=== PATIENT | female | born 1945 | race Caucasian/White ===

== ENCOUNTER 2021-07-30 17:50 | Emergency (ER) | payer MEDICARE, OTHER ==
[~2021-07-30] VITALS: Ht 167.6 cm; Wt 72.6 kg
[~2021-07-30 17:50] MED LIST: ASPIRIN81 MG PO; MULTIVITAMINS1 EAC7 PO; NEXIUM40 MG PO; SYMBICORT 16010.2 GM PO; XOPENEX HFA15 GM INH
[2021-07-30] MEDS ORDERED: CASIRIVIMAB/IMDEVIMAB 10 ML in SODIUM CHLORIDE 0.9% 100 ML IV ONE (18:15)
== END 2021-07-30 18:57 | disposition home or self-care (01) ==
LOC: ER 18:10
DX: U07.1 COVID-19 (principal); M32.9 Systemic lupus erythematosus, unspecified; J45.909 Unspecified asthma, uncomplicated; Z85.3 Personal history of malignant neoplasm of breast
CPT/HCPCS: 99283

== ENCOUNTER 2022-04-12 13:46 | Emergency (ER) | payer MEDICARE ==
[~2022-04-12] VITALS: Ht 167.6 cm; Wt 72.6 kg
[2022-04-12] MEDS ORDERED: BEBTELOVIMAB 175 MG INJ IV ONE (14:00)
== END 2022-04-12 14:32 | disposition home or self-care (01) ==
LOC: ER 14:00
DX: U07.1 COVID-19 (principal); R05.9 Cough, unspecified; M32.9 Systemic lupus erythematosus, unspecified; J45.909 Unspecified asthma, uncomplicated; Z85.3 Personal history of malignant neoplasm of breast
CPT/HCPCS: 99283

== ENCOUNTER → 2022-06-09 | Day surgery (SDC) | payer MEDICARE ==
[2022-06-06 14:57] LABS: BASOPHILS # (AUTO) 0.1 (0.0-0.1); BASOPHILS % 0.7 % (0.0-1.0); EOSINOPHILS # (AUTO) 1.1 (0.0-0.4); EOSINOPHILS % 11.5 % (0.0-6.0); HEMATOCRIT 43.9 % (34.2-44.1); HEMOGLOBIN 14.6 g/dL (12.0-16.0); LYMPHOCYTES # (AUTO) 2.4 (1.0-3.2); LYMPHOCYTES % 26.2 % (18.0-39.1); MEAN CORPUSCULAR HEMOGLOBIN 30.1 pg (28-32); MEAN CORPUSCULAR HGB CONC 33.3 g/dL (31-35); MEAN CORPUSCULAR VOLUME 90.5 fL (81-99); MONOCYTES # (AUTO) 0.9 (0.2-0.8); MONOCYTES % 9.3 % (4.4-11.3); NEUTROPHILS # (AUTO) 4.7 (2.1-6.9); PLATELET COUNT 179 x10e3/uL (140-360); RED BLOOD COUNT 4.85 x10e6/uL (3.6-5.1)
[~2022-06-09] MED LIST changes: +CALTRATE 600 W1 EACH PO; +EPHEDRINE SULFATE INJ 50 MG/ML VIAL ONE; +FENTANYL CITRATE/PF 100MCG/2 ML INJ ONE; +FISH OIL 1,2001 EACH PO; +HYOSCYAMINE SULFATE 0.5 MG/ML INJ ONE; +LIDOCAINE HCL 2% LOCAL INJ 5 ML SDV VIAL INJ ONE; +PROPOFOL IV EMULSION 10 MG/ML 20 ML VIAL ONE; +VITAMIN D350 MCG PO
[2022-06-09 10:55] VITALS: BP 143/61
== END | disposition home or self-care (01) ==
LOC: OR 06:54
PROVIDERS: ATTEND Internal Medicine Gastroenterology
DX: R10.32 Left lower quadrant pain (principal); D12.0 Benign neoplasm of cecum; D12.3 Benign neoplasm of transverse colon; D12.4 Benign neoplasm of descending colon; K31.7 Polyp of stomach and duodenum; K29.70 Gastritis, unspecified, without bleeding; K21.00 Gastro-esophageal reflux disease with esophagitis, without bleeding; K22.70 Barrett's esophagus without dysplasia; K44.9 Diaphragmatic hernia without obstruction or gangrene; K64.8 Other hemorrhoids; J45.909 Unspecified asthma, uncomplicated; N20.0 Calculus of kidney; Z01.810 Encounter for preprocedural cardiovascular examination; Z01.812 Encounter for preprocedural laboratory examination; Z79.82 Long term (current) use of aspirin; Z79.899 Other long term (current) drug therapy; Z85.3 Personal history of malignant neoplasm of breast
CPT/HCPCS: 36415; 43239; 43251; 45380; 45385; 85025; 93005; C9113; J1980; J2001; J2704; J3010; 45378

== ENCOUNTER → 2022-11-27 | Outpatient (CLI) | payer MEDICARE ==
[~2022-11-27] MED LIST changes: -EPHEDRINE SULFATE INJ 50 MG/ML VIAL ONE; -FENTANYL CITRATE/PF 100MCG/2 ML INJ ONE; -HYOSCYAMINE SULFATE 0.5 MG/ML INJ ONE; -LIDOCAINE HCL 2% LOCAL INJ 5 ML SDV VIAL INJ ONE; -PROPOFOL IV EMULSION 10 MG/ML 20 ML VIAL ONE
== END ==
LOC: RAD 08:56
PROVIDERS: ATTEND Internal Medicine Gastroenterology
DX: K59.09 Other constipation (principal)
CPT/HCPCS: 74018

== ENCOUNTER → 2024-02-29 | Day surgery (SDC) | payer MEDICARE ==
[2024-02-26 15:10] LABS: BASOPHILS # (AUTO) 0.1 (0.0-0.1); BASOPHILS % 0.5 % (0.0-1.0); EOSINOPHILS % 10.6 % (0.0-6.0); HEMATOCRIT 43.7 % (34.2-44.1); HEMOGLOBIN 14.6 g/dL (12.0-16.0); LYMPHOCYTES # (AUTO) 2.5 (1.0-3.2); LYMPHOCYTES % 26.1 % (18.0-39.1); MEAN CORPUSCULAR HEMOGLOBIN 30.5 pg (28-32); MEAN CORPUSCULAR HGB CONC 33.4 g/dL (31-35); MEAN CORPUSCULAR VOLUME 91.2 fL (81-99); MONOCYTES % 10.3 % (4.4-11.3); NEUTROPHILS % 52.1 % (38.7-80.0); PLATELET COUNT 196 x10e3/uL (140-360); RED BLOOD COUNT 4.79 x10e6/uL (3.6-5.1); RED CELL DISTRIBUTION WIDTH 12.9 % (11.7-14.4); WHITE BLOOD COUNT 9.65 x10e3/uL (4.8-10.8)
[~2024-02-29] MED LIST changes: +ACETAMINOPHEN 1000 MG/100 ML IV ONE; +ATIVAN1 MG PO; +BIOTIN1 MG; +BUPIVACAINE HCL 0.5% INJ 30 ML VIAL INJ ONE; +DEXAMETHASONE SOD PHOS INJ 4 MG/ML SDV ONE; +EPHEDRINE SULFATE INJ 50 MG/ML VIAL ONE; +FENTANYL CITRATE/PF 100MCG/2 ML INJ ONE; +HYDROCODONE/APAP 5MG-325MG TAB ONE; +LACTATED RINGER'S 1,000 ML ONE; +LIDOCAINE HCL 2% LOCAL INJ 5 ML SDV VIAL INJ ONE; +NEOSTIGMINE 1 MG/ML 10ML VIAL ONE; +ONDANSETRON HCL INJ 2MG/ML 2ML 2 MG/ML VIAL ONE; +PROPOFOL IV EMULSION 10 MG/ML 20 ML VIAL ONE; +PROVENTIL HFA6.7 GM INH; +SEVOFLURANE INHAL SOLN 250 ML PEN BTL ONE
[2024-02-29] MEDS: HYDROCODONE/APAP 5MG-325MG TAB PO ONE (10:18)
[2024-02-29 11:00] VITALS: BP 150/82; PULSE 70; RESP 16; O2SAT 97
== END | disposition home or self-care (01) ==
LOC: OR 06:06
PROVIDERS: ATTEND Podiatrist Foot Surgery
DX: M20.11 Hallux valgus (acquired), right foot (principal); M20.41 Other hammer toe(s) (acquired), right foot; J45.909 Unspecified asthma, uncomplicated; K21.9 Gastro-esophageal reflux disease without esophagitis; F41.9 Anxiety disorder, unspecified; Z91.040 Latex allergy status; Z91.048 Other nonmedicinal substance allergy status; Z01.810 Encounter for preprocedural cardiovascular examination; Z01.812 Encounter for preprocedural laboratory examination; Z01.818 Encounter for other preprocedural examination; Z79.899 Other long term (current) drug therapy
CPT/HCPCS: 28285 ×3; 28296; 36415; 71046; 76000; 85025; 93005; C1713 ×5; J0131; J0690; J1100; J2001; J2405; J2704; J2710; J3010; J7121

== ENCOUNTER → 2025-06-25 | Outpatient (REF) | payer MEDICARE ==
[~2025-06-25] MED LIST changes: -ACETAMINOPHEN 1000 MG/100 ML IV ONE; -BUPIVACAINE HCL 0.5% INJ 30 ML VIAL INJ ONE; -DEXAMETHASONE SOD PHOS INJ 4 MG/ML SDV ONE; -EPHEDRINE SULFATE INJ 50 MG/ML VIAL ONE; -FENTANYL CITRATE/PF 100MCG/2 ML INJ ONE; -HYDROCODONE/APAP 5MG-325MG TAB ONE; -LACTATED RINGER'S 1,000 ML ONE; -LIDOCAINE HCL 2% LOCAL INJ 5 ML SDV VIAL INJ ONE; -NEOSTIGMINE 1 MG/ML 10ML VIAL ONE; -ONDANSETRON HCL INJ 2MG/ML 2ML 2 MG/ML VIAL ONE; -PROPOFOL IV EMULSION 10 MG/ML 20 ML VIAL ONE; -SEVOFLURANE INHAL SOLN 250 ML PEN BTL ONE
== END ==
LOC: US 11:46
PROVIDERS: ATTEND Internal Medicine
DX: R10.9 Unspecified abdominal pain (principal)
CPT/HCPCS: 76770